=== PATIENT | male | born 1955 | race Caucasian/White ===

== ENCOUNTER 2020-10-16 09:08 | Outpatient (CLI) | payer MEDICARE, SELFPAY ==
--- NOTE | 2020-10-16 09:15 | EST_ITS ---
Patient Info Name: Morteza Galeas Age: 65 years : 1955 Gender: Male Ht: 72 in Wt: 237 lbs BSA: 2.37 m2 Heart Rhythm: Sinus Rhythm Technical Quality: Good Exam Date: 10/16/2020 9:49 AM Exam Location: [facility] Patient Status: Outpatient Admit Date: 10/16/2020 Staff Ordering Physician: Sunny Leahy DO Health Records Technology Teacher: Srini Kimble RDCS, RT Attending Provider: Sunny Leahy DO Exercise Technologist: Laura Araujo CT Exercise Physician: Terrell Allred DO Exam Type: CA stress echo Study Info Indications R07.89 - Other chest pain Treadmill exercise stress echocardiogram is performed. Summary 1. 1. Negative Stefano exercise stress test for ischemic ST changes by ECG criteria. 2. 2. Good functional capacity, achieving 10 METs of workload. 3. 3. Appropriate HR response to exercise. 4. 4. Appropriate HR recovery at 1 minute post exercise. 5. 5. Negative stress echocardiogram for ischemia by wall motion analysis. 6. 6. Patient informed of the above results. Stress Echo Findings Left Ventricle Appropriate increase in LV endocardial thickening with systole. Appropriate augmentation of contractility with systole. No wall motion abnormality. Left Ventricle Normal LV systolic function, no wall motion abnormality. Protocol: Stefano Stress ECG Details Stage: REST Duration (min): 0 min : 27 sec Speed (mph): 0.0 Grade (%): 0 HR (bpm): 71 SBP (mmHg): --- DBP (mmHg): --- METS: --- Stage: REST Duration (min): 16 min : 49 sec Speed (mph): 0.0 Grade (%): 0 HR (bpm): 77 SBP (mmHg): 121 DBP (mmHg): 80 METS: --- Stage: STAGE 1 Duration (min): 1 min : 0 sec Speed (mph): 1.7 Grade (%): 10 HR (bpm): 95 SBP (mmHg): 121 DBP (mmHg): 80 METS: --- Stage: STAGE 1 Duration (min): 2 min : 0 sec Speed (mph): 1.7 Grade (%): 10 HR (bpm): 104 SBP (mmHg): 121 DBP (mmHg): 80 METS: --- Stage: STAGE 1 Duration (min): 3 min : 0 sec Speed (mph): 1.7 Grade (%): 10 HR (bpm): 108 SBP (mmHg): 149 DBP (mmHg): 85 METS: --- Stage: STAGE 2 Duration (min): 1 min : 0 sec Speed (mph): 2.5 Grade (%): 12 HR (bpm): 113 SBP (mmHg): 149 DBP (mmHg): 85 METS: --- Stage: STAGE 2 Duration (min): 2 min : 0 sec Speed (mph): 2.5 Grade (%): 12 HR (bpm): 123 SBP (mmHg): 157 DBP (mmHg): 84 METS: --- Stage: STAGE 2 Duration (min): 3 min : 0 sec Speed (mph): 2.5 Grade (%): 12 HR (bpm): 125 SBP (mmHg): 157 DBP (mmHg): 84 METS: --- Stage: STAGE 3 Duration (min): 1 min : 0 sec Speed (mph): 3.4 Grade (%): 14 HR (bpm): 133 SBP (mmHg): 196 DBP (mmHg): 84 METS: --- Stage: STAGE 3 Duration (min): 2 min : 0 sec Speed (mph): 0.0 Grade (%): 0 HR (bpm): 139 SBP (mmHg): 196 DBP (mmHg): 84 METS: --- Stage: STAGE 3 Duration (min): 2 min : 1 sec Speed (mph): 0.0
== END 2020-10-16 09:09 | disposition home or self-care (01) ==
PROVIDERS: PCP Internal Medicine; Visit Provider Internal Medicine
DX: R07.89 Other chest pain (principal); Z82.3 Family history of stroke
CPT/HCPCS: 93351

== ENCOUNTER 2020-10-28 08:44 | Emergency (ER) | payer MEDICARE, SELFPAY ==
[2020-10-28 09:07] VITALS: BP 145/87; PULSE 72; RESP 18; TEMP 36.2; O2SAT 97
--- NOTE | 2020-10-28 09:14 | ED.BACK ---
HPI - Back Pain/Injury General Chief Complaint: Back Pain/Injury Stated Complaint: back pain Time Seen by Provider: 10/28/20 09:10 Source: patient and RN notes reviewed Mode of arrival: ambulatory Limitations: no limitations History of Present Illness HPI Narrative: 65-year-old male with a history of hypertension presents to the [facility] with complaints of lumbar pain, worse on the left than the right. Patient states that on Monday, 3 days ago, he bent over to pick something up and twisted causing a pain in the left lower lumbar area. Denies any trauma. No loss or retention of bowel or bladder. No new numbness or tingling in extremities. Walks with a normal gait. Has tried topicals and a heating pad with no relief. Denies any abdominal pain or chest pain. Able to do straight leg raises with minimal discomfort on left side. No midline tenderness. Related Data Home Medications Medication Instructions Recorded Confirmed gabapentin [Neurontin] 800 mg PO DAILY 10/28/20 10/28/20 losartan 50 mg PO DAILY 10/28/20 10/28/20 Allergies Allergy/AdvReac Type Severity Reaction Status Date / Time No Known Allergies Allergy Unknown Verified 10/28/20 09:05 Review of Systems Review of Systems: Narrative: CONSTITUTIONAL: Denies fever, chills, or sweats. CARDIOVASCULAR: Denies chest pain, palpitations, or edema. RESPIRATORY: Denies cough or dyspnea. GASTROINTESTINAL: Denies abdominal pain, nausea, vomiting, or diarrhea. GENITOURINARY: Denies dysuria or hematuria. SKIN: Denies rash or itching. MUSCULOSKELETAL: Reports lumbar pain back pain. Denies joint pain. No spinal tenderness. No trauma. NEUROLOGIC: Denies headache, numbness, or weakness. PSYCHIATRIC: Denies anxiety or depression. All other systems reviewed are negative, except as documented in HPI. [facility] Past Medical History Medical History Elevated LDL cholesterol level Essential (primary) hypertension Family History Family History Mother Patient's mother is Father Hypertension Social History Social History Smoking status: Never smoker Second hand tobacco smoke exposure: No Alcohol intake: current Gender identity (if verbalized by the patient): Male Comments At the time of my signature, I reviewed and agree with the nursing past medical, surgical, social, and family history. There is no relevant family history pertinent to the patient complaint. Exam Narrative: Exam Narrative: GENERAL: This is a well-nourished, well-developed patient, in no apparent distress. HEAD: normocephalic, atraumatic. EYES: PERRL. EARS: External ears normal. NECK: Neck supple, non-tender. CARDIOVASCULAR: Regular rate and rhythm without murmurs, gallops, or rubs. RESPIRATORY: Clear to auscultation. Breath sounds equal bilaterally. No wheezes, rales, or rhonchi. GASTROINTESTINAL: Abdomen soft, non-tender, nondistended. No hepato-splenomegaly, or palpable masses. No guarding. SKIN: warm, intact with no suspicious lesions or rash, good texture and turgor. NEURO: awake, alert, and oriented to person, place and time. There were no obvious focal neurologic abnormalities. EXTREMITIES: No joint tenderness, effusion, or edema noted. BACK: Lumbar tenderness noted without deformity. Worse on the left than the right. No vertebral tenderness. No spasm noted. No CVA tenderness. Able to do straight leg raises against resistance with minimal pain on the left, none on the right. Pelvis is stable. Course Vital Signs Vital signs: Vital Signs Temperature 97.2 F L 10/28/20 09:07 Pulse Rate 72 10/28/20 09:07 Respiratory Rate 18 10/28/20 09:07 Blood Pressure 145/87 H 10/28/20 09:07 Pulse Oximetry 97 10/28/20 09:07 Temperature 97.2 F L 10/28/20 09:07 Pulse Rate 72 10/28/20 09:07 Respiratory
== END 2020-10-28 09:25 | disposition home or self-care (01) ==
PROVIDERS: Emergency Provider Nurse Practitioner; PCP Internal Medicine
DX: S39.012A Strain of muscle, fascia and tendon of lower back, initial encounter (principal); X50.9XXA Other and unspecified overexertion or strenuous movements or postures, initial encounter; E78.00 Pure hypercholesterolemia, unspecified; I10 Essential (primary) hypertension
CPT/HCPCS: 99213; G0463

== ENCOUNTER 2022-04-07 13:41 | Outpatient (CLI) | payer MEDICARE, SELFPAY ==
--- NOTE | ~2022-04-07 | CT_ITS ---
EXAMINATION: CT diagnostic chest wo con DATE: 04/07/2022 14:03 INDICATION: Pulmonary nodule TECHNIQUE: Computed tomography (CT) of the chest was performed without intravenous contrast. The dose -length product (DLP) was 256.50 mGy-cm. 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 COMPARISON: 11/24/2014 FINDINGS: There are multiple stable pulmonary nodules, consistent with old granulomatous disease. No new pulmonary nodules are identified. There is mild chronic mediastinal lymphadenopathy, likely react idris. The lungs are free of focal airspace opacities. There is moderate atelectasis. No pleural effusi on or pneumothorax. The heart size is normal. There is elevation of the right hemidiaphragm. Calcifi ed coronary artery atherosclerosis is noted. IMPRESSION: 1. Multiple stable pulmonary nodules, consistent with old granulomatous disease. Reviewed, dictated and finalized at location B. IMPRESSION: 1. Multiple stable pulmonary nodules, consistent with old granulomatous disease .
--- NOTE | 2022-04-07 16:37 | WPDPFTINT ---
PFT Procedure Performed PFT Procedure Performed Spirometry with Pre/Post Bronchodilator Plethysmography (Lung Vol) Diffusing Cap (DLCO) Flow Vol Loop PFT Interpretation This is a pulmonary function test with pre and post-bronchodilator spirometry, plethysmography and diffusing capacity. The test was performed and results interpreted in accordance with the 2019 and 2005 ATS/ERS Task Force guidelines respectively using the Global Lung Function Initiative-2012 reference equations. Patient demonstrated good effort and cooperation. Reproducibility criteria were met. The quality of the pre bronchodilator spirometry maneuver was Grade B and post bronchodilator spirometry maneuver was Grade B. Findings: Spirometry: The contour the inspiratory and expiratory flow tracing are normal. The pre bronchodilator FVC is 4.16 L, 90% predicted. The pre bronchodilator FEV1 is 3.26 L, 93% predicted. The pre bronchodilator FEV1: FVC ratio 78%. The post bronchodilator FVC is 4.16 L, representing no change. The post bronchodilator FEV1 is 3.43 L, representing a 5% increase. The post bronchodilator FEV1: FVC ratio was 82%. Plethysmography: The total lung capacity is 8.77 L, 1 on 118% predicted. The functional residual capacity is 4.75 L, 120% predicted. The residual volume is 4.36 L, 173% predicted. Diffusion capacity: The diffusing capacity unadjusted for hemoglobin and carboxyhemoglobin is 28.0, 102% predicted. The diffusing capacity adjusted for alveolar volume is 4.65, 120% predicted. Impression: The spirometry is normal without evidence of an obstructive abnormality. There is no significant improvement after inhaling a single dose of albuterol. The total lung capacity is normal with an increased residual volume. This is an abnormal but nonspecific lung volume pattern. The diffusing capacity is normal. There are no prior studies for comparison
== END 2022-04-07 13:42 | disposition home or self-care (01) ==
PROVIDERS: PCP Internal Medicine; Visit Provider Internal Medicine
DX: R91.1 Solitary pulmonary nodule (principal); R06.09 Other forms of dyspnea; R91.8 Other nonspecific abnormal finding of lung field
CPT/HCPCS: 71250; 94060; 94726; 94729

== ENCOUNTER 2022-05-10 12:24 | Outpatient (CLI) | payer MEDICARE, SELFPAY ==
--- NOTE | 2022-05-10 12:33 | ECHO_ITS ---
Patient Info Name: Morteza Galeas Age: 66 years : 1955 Gender: Male Ht: 72 in Wt: 243 lbs BSA: 2.40 m2 HR: 71 bpm BP: 127 / 79 mmHg Technical Quality: Fair Exam Date: 05/10/2022 1:21 PM Exam Location: [facility] Patient Status: Outpatient Admit Date: 05/10/2022 Staff Ordering Physician: Terrell Allred DO Rn Assessment: Neena Ramos RDCS Attending Provider: Terrell Allred DO Referring Physician: Chalino HUGHES; Exam Type: CA echo doppler color flow Study Info Indications - family history of HOCM Complete two-dimensional, color flow and Doppler transthoracic echocardiogram is performed. Summary 1. Complete two-dimensional, color flow and Doppler transthoracic echocardiogram is performed. 2. Left ventricular chamber dimension is normal. 3. Left ventricular systolic function is normal, estimated at 60-65%. 4. The left ventricular diastolic function is grade I diastolic dysfunction. 5. E/e' 6 is not elevated. Left Ventricle E/e' 6 is not elevated. Left ventricular chamber dimension is normal. Left ventricular systolic function is normal, estimated at 60-65%. The left ventricular diastolic function is grade I diastolic dysfunction. Right Ventricle Right ventricular systolic function is normal and with normal TAPSE 1.7 cm. Right ventricular chamber dimension is normal. Left Atria Left atrial chamber dimension is normal. Right Atria Right atrial chamber dimension is normal. Aortic Valve The aortic valve is trileaflet. There is no aortic valve stenosis. There is no aortic valve regurgitation. Pulmonic Valve There is no pulmonic regurgitation. Mitral Valve There is no mitral valve stenosis. There is no mitral valve regurgitation. Tricuspid Valve There is no tricuspid valve regurgitation. Pericardium/Pleural There is no pericardial effusion. Inferior Vena Cava Normal inferior vena cava with >50% collapse upon inspiration consistent with normal right atrial pressure, 5 mmHg. Aorta The aortic root size at the sinus of Valsalva is normal. Left Ventricular Outflow Tract Name Value Normal LVOT 2D LVOT Diameter 2.2 cm LVOT Doppler LVOT Peak Gradient 4 mmHg LVOT Mean Gradient 2 mmHg LVOT VTI 20 cm LVOT VTI/AV VTI Ratio 0.9 LVOT Stroke Volume 73 ml LVOT CO 5.4 l/min LVOT CI 2.3 l/min/m2 Mitral Valve Name Value Normal MV Doppler MV Peak Gradient 4 mmHg MV Mean Gradient 1 mmHg MV Decel Freeborn 365 cm/s2 MV PHT 58 ms MV Area (PHT) 3.8 cm2 4
== END 2022-05-10 12:25 | disposition home or self-care (01) ==
LOC: ANHCARD 12:26
PROVIDERS: PCP Internal Medicine; Visit Provider Internal Medicine Cardiovascular Disease
DX: R06.09 Other forms of dyspnea (principal)
CPT/HCPCS: 93306

== ENCOUNTER 2023-09-03 10:10 | Emergency (ER) | payer MEDICARE, SELFPAY ==
[2023-09-03 10:20] VITALS: BP 137/78; PULSE 88; RESP 20; TEMP 36.6; O2SAT 97
--- NOTE | 2023-09-03 11:08 | ED.GENADULT ---
HPI - General Adult General Chief complaint: Upper Respiratory Infection Stated complaint: Allergies Source: patient Mode of arrival: ambulatory Limitations: no limitations History of Present Illness HPI narrative: Patient presents for evaluation of a cough that he has experience for the last week. Cough is productive of clear sputum. He denies shortness of breath, fever, chills, nausea, vomiting, sore throat, otalgia. No recent sick contacts to his knowledge. He tried NyQuil which helped initially but later lost efficacy. He then tried Mucinex DM without improvement in his symptoms or after. He does not smoke. He took a home COVID test which was negative. Related Data Home Medications Medication Instructions Recorded Confirmed gabapentin 800 mg tablet 800 mg PO DAILY 10/28/20 08/01/23 (Neurontin) magnesium chloride 64 mg 64 mg PO DAILY 02/01/23 08/01/23 (magnesium chloride) tablet,delayed release mecobalamin (vitamin B12) 500 mcg mcg PO 02/01/23 08/01/23 chewable tablet Allergies Allergy/AdvReac Type Severity Reaction Status Date / Time No Known Allergies Allergy Unknown Verified 08/01/23 09:21 Review of Systems Review of Systems: CONSTITUTIONAL: Denies fever, chills, or sweats. EYES: Denies visual changes, redness, or discharge. ENT: Denies rhinorrhea, congestion, sore throat, or otalgia. CARDIOVASCULAR: Denies chest pain, palpitations, or edema. RESPIRATORY: Reports productive cough of clear sputum. Denies shortness of breath. GASTROINTESTINAL: Denies abdominal pain, nausea, vomiting, or diarrhea. GENITOURINARY: Denies dysuria or hematuria. SKIN: Denies rash or itching. MUSCULOSKELETAL: Denies back pain, joint pain, or myalgia. NEUROLOGIC: Denies headache, numbness, dizziness, or weakness. PSYCHIATRIC: Denies anxiety or depression. [facility] Past Medical History Medical History (Updated 09/03/23 @ 11:09 by CADEN Holcomb, JENNIFER) Elevated LDL cholesterol level Essential (primary) hypertension Surgical History Surgical History (Updated 09/03/23 @ 11:09 by CADEN Holcomb, JENNIFER) No pertinent past surgical history Family History Family History Mother Patient's mother is Father Hypertension Social History Social History Smoking status: Never smoker Second hand tobacco smoke exposure: No Alcohol intake: current Substance use: unknown Lack of Transportation: No Lack of Food: Never True Current Housing: I Have Housing Concerned About Future Housing: No Difficulty Paying Gas/Electric Bills: No Difficulty Paying for Meds: No Currently Unemployed: No Education: High School Diploma/GED Difficulty w/ Childcare or Family Care: No Gender identity (if verbalized by the patient): Male Exam Narrative: GENERAL: Well-appearing, well-nourished, and in no acute distress. HEAD: Normocephalic, atraumatic. EYES: PERRLA and EOMI. ENT: Nares clear, no rhinorrhea or epistaxis. Mucous membranes moist. Oropharynx without tonsillar hypertrophy exudate or other lesions. Bilateral TMs pearly kent nonbulging NECK: Supple. No adenopathy or masses. No carotid bruits or JVD CHEST: Cough present on exam. Rales noted in left lung base posteriorly. No respiratory distress. HEART: Regular rate and rhythm. No murmur heard. Normal peripheral pulses. ABDOMEN: Soft, nontender, nondistended, normal active bowel sounds. EXTREMITIES: Normal range of motion. No edema. SKIN: Warm, dry, no rash. NEURO: No focal deficits. Alert and oriented x3. PSYCH: Normal mood and affect. Course Course Emergency Course: This is a 68-year-old male who presented for evaluation of a cough for the last week. He took a home COVID test which was negative. I did offer to check him for COVID and flu which he declined. Unfortunately
== END 2023-09-03 11:10 | disposition home or self-care (01) ==
PROVIDERS: Emergency Provider Nurse Practitioner; PCP Physician Assistant
DX: R05.9 Cough, unspecified (principal); E78.00 Pure hypercholesterolemia, unspecified; I10 Essential (primary) hypertension
CPT/HCPCS: 99213; G0463

== ENCOUNTER 2023-09-05 09:50 | Outpatient (CLI) | payer MEDICARE, SELFPAY ==
--- NOTE | ~2023-09-05 | XR_ITS ---
Clinical Indication: Pneumonia PA and lateral views of the chest: Comparison: None Findings: Small right pleural effusion present, probable right basilar atelectasis. Possible 7 mm lef t basilar pulmonary nodule. Cardiomediastinal silhouette is within normal limits. Bones and soft tiss ues are unremarkable. Impression: Small right pleural effusion with probable right basilar atelectasis. Correlate clinically for pneumo lewis. Possible 7 mm left basilar pulmonary nodule. This may correspond with nodule seen on prior CT scan. C onsider follow-up CT scan to confirm no significant interval change. Reviewed, dictated and finalized at location . 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 Correlate clinically for pneumonia. Possible 7 mm left basilar pulmonary nodule. This may correspond with nodule se en on prior CT scan. Consider follow-up CT scan to confirm no significant inter miquel change.
== END 2023-09-05 09:51 | disposition home or self-care (01) ==
PROVIDERS: PCP Physician Assistant; Visit Provider Internal Medicine
DX: J40 Bronchitis, not specified as acute or chronic (principal); J90 Pleural effusion, not elsewhere classified
CPT/HCPCS: 71046

== ENCOUNTER 2023-10-04 21:27 | Emergency (ER) | payer MEDICARE, SELFPAY ==
--- NOTE | ~2023-10-04 | XR_ITS ---
EXAMINATION: XR chest 1V portable DATE: 10/04/2023 22:17 INDICATION: Hypertension. TECHNIQUE: A single frontal view of the chest was obtained. COMPARISON: Chest 2 views 09/05/2023, chest CT 04/07/2022 FINDINGS: There is mild atelectasis at the lung bases. No pleural effusion or pneumothorax. The heart size is normal. IMPRESSION: 1. Mild atelectasis at the lung bases. Reviewed, dictated and finalized at location E. HEAD PUMPER
--- NOTE | 2023-10-04 21:29 | ECG_ITS ---
Measurements Intervals [place] Rate: 100 P: 27 NV: 157 QRS: -37 QRSD: 98 T: 33 QT: 328 QTc: 423 Interpretive Statements SINUS TACHYCARDIA LEFT AXIS DEVIATION [QRS AXIS < -30] PATTERN CONSISTENT WITH PULMONARY DISEASE BORDERLINE ECG NO PREVIOUS ECG AVAILABLE FOR COMPARISON Electronically Signed On 10-05-2023 12:20:58 [employer] WHE[employer] by Lamont Painter M.D.
[2023-10-04 21:36] VITALS: BP 131/85; PULSE 99; RESP 16; TEMP 36.2; O2SAT 93
[2023-10-04 22:10] LABS: Basophils Percent Auto 0.3 % (0.2-1.2); Eosinophils Absolute Auto 0.2 K/mm3 (0-0.3); Eosinophils Percent Auto 2.2 % (0-4.4); Hematocrit 44.5 % (42.0-52.0); Hemoglobin 15.4 g/dL (14.0-18.0); Immature Granulocyte Absolute 0.03 K/mm3 (0.00-0.031); Immature Granulocyte Percent A 0.4 % (0-0.5); Lymphocytes Absolute Auto 1.03 K/mm3 (0.9-3.2); Lymphocytes Percent Auto 13.1 % (18.3-44.2); Mean Corpuscular HGB Conc 34.6 g/dl (32-36); Mean Corpuscular Hemoglobin 30.8 pg (26-34); Mean Platelet Volume 8.9 fl (7.4-10.4); Monocytes Absolute Auto 0.7 K/mm3 (0.1-0.6); Monocytes Percent Auto 8.5 % (2.6-8.5); Neutrophils Absolute Auto 5.9 K/mm3 (1.3-6.7); Neutrophils Percent Auto 75.5 % (45.5-73.1); Platelet Count Result 180 k/mm3 (150-375); Red Cell Distribution Width 13.8 % (11.5-14.5); White Blood Count 7.9 K/mm3 (4.5-10.0)
[2023-10-04 22:15] VITALS: BP 138/82; PULSE 91; RESP 18; O2SAT 97
[2023-10-04 22:20] LABS: INR 0.9; Prothrombin Time 12.9 Seconds (11.1-14.7)
[2023-10-04 22:21] LABS: Alanine Aminotransferase 32 U/L (6-50); Alkaline Phosphatase 78 U/L (38-126); Anion Gap 9 mmol/L (8-16); Aspartate Amino Transferase 37 U/L (17-59); Bilirubin,Total 1.1 mg/dL (0.2-1.3); Blood Urea Nitrogen 33 mg/dL (9-20); Calcium 9.1 mg/dL (8.4-10.2); Carbon Dioxide 24 mmol/L (22-30); Chloride 102 mmol/L (98-107); Estimated CRCL calculation 85 ml/min; Estimated Glomerular Filt Rate > 60; Glucose 152 mg/dL (65-110); Lipase 84 U/L (23-300); Partial Thromboplastin Time 25.3 SECONDS (22.3-36.8); Potassium 3.5 mmol/L (3.4-5.0); Sodium 135 mmol/L (137-145)
[2023-10-04] MEDS: ASPIRIN 81 MG CHEWABLE TABLET 324 MG PO (22:22)
[2023-10-04 22:30] VITALS: BP 125/76; PULSE 87; RESP 17; O2SAT 95
[2023-10-04 22:32] LABS: Troponin I < 0.012 ng/mL (0.000-0.034)
--- NOTE | 2023-10-04 22:40 | ED.ARRPALP ---
HPI - Arrhythmia/Palpitations General Chief Complaint: Arrhythmia/Palpitations Stated Complaint: elevated HR Time Seen by Provider: 10/04/23 22:37 Source: patient and family Limitations: no limitations History of Present Illness HPI narrative: 68 yo male presents with elevated heart rate. He became lightheaded and weak while at [employer] and saw that his heart rate was 115 on his wristwatch monitor. No fever. He states he has had a lingering occasional cough ever since a diagnosis of pneumonia approximately 1 month ago for which he received antibiotics and steroids. Non smoker. He felt like he might faint and he was sweaty. No chest pain or SOB at the time or now. The episode lasted 5-10 minutes. No symptoms now other than feeling tired. He did not lose consciousness during episode. He had been standing for awhile at the time, no recent position changes but not particularly standing still with legs locked. This has never happened before. No history of liver disease, CHF, diabetes. Takes Lasix for chronic lower extremity edema. No underlying cardiac or respiratory conditions; previously had nodules noted on CXR that are being followed up with. 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 Related Data Home Medications Medication Instructions Recorded Confirmed gabapentin 800 mg tablet 800 mg PO DAILY 10/28/20 09/11/23 (Neurontin) magnesium chloride 64 mg 64 mg PO DAILY 02/01/23 09/11/23 (magnesium chloride) tablet,delayed release mecobalamin (vitamin B12) 500 mcg mcg PO 02/01/23 09/11/23 chewable tablet Allergies Allergy/AdvReac Type Severity Reaction Status Date / Time No Known Allergies Allergy Unknown Verified 10/04/23 22:20 [facility] Past Medical History Medical History Elevated LDL cholesterol level Essential (primary) hypertension Surgical History Surgical History No pertinent past surgical history Family History Family History (Updated 10/07/23 @ 22:10 by Tiffanie Sandoval MD) Mother Patient's mother is Father Hypertension Other HOCM (hypertrophic obstructive cardiomyopathy) Social History Social History Smoking status: Never smoker Second hand tobacco smoke exposure: No Alcohol intake: current Substance use: unknown Lack of Transportation: No Lack of Food: Never True Current Housing: I Have Housing Concerned About Future Housing: No Difficulty Paying Gas/Electric Bills: No Difficulty Paying for Meds: No Currently Unemployed: No Education: High School Diploma/GED Difficulty w/ Childcare or Family Care: No Gender identity (if verbalized by the patient): Male Exam Narrative: GENERAL: Well-appearing, well-nourished, and in no acute distress. HEAD: Normocephalic, atraumatic. EYES: Non injected, non icteric ENT: Nares clear, no rhinorrhea or epistaxis. NECK: Supple. CHEST: Clear to auscultation. No respiratory distress. No wheezes, crackles. HEART: Regular rate and rhythm. No murmurs appreciated . ABDOMEN: Soft, nondistended. EXTREMITIES: Normal range of motion. Trace b/l lower extremity edema. SKIN: Warm, dry, no rash. NEURO: No focal deficits. Alert and oriented x3. Speaks clearly without aphasia or dysphasia. PSYCH: Normal mood and affect. Course Vital Signs Vital signs: Vital Signs Temperature 97.2 F L 10/04/23 21:36 Pulse Rate 99 10/04/23 21:36 Respiratory Rate 16 10/04/23 21:36 Blood Pressure 131/85 10/04/23 21:36 Pulse Oximetry 93 10/04/23 21:36 Oxygen Delivery Room Air 10/04/23 21:36 Temperature 97.2 F L 10/04/23 21:36 Pulse Rate 86 10/04/23 23:15 Respiratory Rate 17 10/04/23 23:15 Blood Pressure 125/76
[2023-10-04] MEDS: SODIUM CHLORIDE 0.9% IV 1,000 ML 999 ML IV CONT (22:46)
[2023-10-04 23:15] VITALS: PULSE 86; RESP 17; O2SAT 96
[2023-10-04 23:24] LABS: D Dimer 0.41 ug/mL (<0.48)
[2023-10-05 00:01] LABS: Influenza A QL RT-PCR Negative (Negative); Influenza B QL RT-PCR Negative (Negative); RSV RNA, RT-PCR Negative (Negative); SARS-CoV-2 RNA PCR Positive (Negative)
== END 2023-10-05 01:00 | disposition home or self-care (01) ==
PROVIDERS: Emergency Provider Student in an Organized Health Care Education/Training Program; PCP Physician Assistant
DX: U07.1 COVID-19 (principal); R55 Syncope and collapse; R00.0 Tachycardia, unspecified; I10 Essential (primary) hypertension
CPT/HCPCS: 36415; 71045; 80053; 83690; 84443; 84484; 85025; 85380; 85610; 85730; 87637; 93005; 96360; 99284; A9270; J7030

== ENCOUNTER 2024-04-10 07:23 | Emergency (ER) | payer MEDICARE, SELFPAY ==
[2024-04-10 07:30] VITALS: BP 131/81; PULSE 72; RESP 18; TEMP 36.4; O2SAT 97
--- NOTE | 2024-04-10 07:53 | ED.EXTPRO ---
HPI - Extremity Problem General Chief complaint: Extremity Problem,Nontraumatic Stated complaint: L arm pain, known tendonitis Time Seen by Provider: 04/10/24 07:34 History of Present Illness HPI Narrative: 68-year-old male presenting to the emergency department for evaluation for persistent left shoulder pain. Patient has been following up with Dr. Hernandez for left shoulder pain and was diagnosed with tendinitis. Patient is on steroids but states this is not helping. Patient did give Dr. Hernandez a call yesterday and does have follow-up scheduled. Patient presented to the emergency department today stating that the pain is uncontrolled. Patient has been taking ibuprofen for pain control with no significant improvement. Patient states pain is worsened with movement. Related Data Home Medications Medication Instructions Recorded Confirmed gabapentin 800 mg tablet 800 mg PO DAILY 10/28/20 10/11/23 (Neurontin) magnesium chloride 64 mg 64 mg PO DAILY 02/01/23 10/11/23 (magnesium chloride) tablet,delayed release Allergies Allergy/AdvReac Type Severity Reaction Status Date / Time No Known Allergies Allergy Unknown Verified 04/10/24 07:24 Review of Systems Review of Systems: All systems reviewed & are unremarkable except as noted in HPI and below PMFSH Past Medical History Medical History Elevated LDL cholesterol level Essential (primary) hypertension Surgical History Surgical History No pertinent past surgical history Family History Family History Mother Patient's mother is Father Hypertension Other HOCM (hypertrophic obstructive cardiomyopathy) Social History Social History (Updated 04/02/24 @ 13:38 by CLARE Blunt) Smoking status: Never smoker Second hand tobacco smoke exposure: No Alcohol intake: current Substance use: never Substance use type: does not use Do You Feel Safe in your Home?: Yes Lack of Transportation: No Lack of Food: Never True Current Housing: I Have Housing Concerned About Future Housing: No Difficulty Paying Gas/Electric Bills: No Difficulty Paying for Meds: No Currently Unemployed: No Education: High School Diploma/GED Difficulty w/ Childcare or Family Care: No Living arrangements: with family Occupation/Education: retired 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 HEAD: normocephalic, atraumatic. EYES: PERRLA/EOMI, conjunctivae clear. NOSE: Normal no drainage EARS:TMS clear with good light reflex. THROAT: Pharynx clear, no exudate. NECK: Supple. No adenopathy, no masses. RESPIRATORY: Airway patent, respirations nonlabored. Clear to auscultation bilaterally, no rales, rhonchi, wheezing. CARDIOVASCULAR: Regular rate and rhythm without murmurs rubs or gallops. ABDOMINAL: Soft, nontender, nondistended, normal bowel sounds MUSCULOSKELETAL: Left shoulder pain, anterior shoulder tenderness to palpation NEURO: Alert. Cranial nerves II through XII intact. Good gait. Good coordination SKIN: Warm, dry. Normal Color Course Course Emergency Course: Patient was provided additional medication for pain control. Vital Signs Vital signs: Vital Signs Temperature 97.6 F 04/10/24 07:30 Pulse Rate 72 04/10/24 07:30 Respiratory Rate 18 04/10/24 07:30 Blood Pressure 131/81 04/10/24 07:30 Pulse Oximetry 97 04/10/24 07:30 Temperature 97.6 F 04/10/24 07:30 Pulse Rate 67 04/10/24 08:36 Respiratory Rate 16 04/10/24 08:36 Blood Pressure 131/83 04/10/24 08:36 Pulse Oximetry 96 04/10/24 08:36 MDM - Extremity (Nontraumatic) MDM Narrative M
[2024-04-10] MEDS: HYDROcodone/acetaminophen (*CRX) 5-325 MG TABLET 1 TAB PO (08:06)
[2024-04-10] MEDS: CYCLOBENZAPRINE HCL 10 MG TABLET PO (08:13)
[2024-04-10] MEDS: KETOROLAC 30 MG/ML VIAL (*BKC) IM (08:33)
[2024-04-10 08:36] VITALS: BP 131/83; PULSE 67; RESP 16; O2SAT 96
== END 2024-04-10 08:53 | disposition home or self-care (01) ==
PROVIDERS: Emergency Provider Emergency Medicine; PCP Physician Assistant
DX: M77.8 Other enthesopathies, not elsewhere classified (principal); I10 Essential (primary) hypertension
CPT/HCPCS: 96372; 99283; A4565; A9270; J1885

== ENCOUNTER 2024-12-10 10:17 | Outpatient (CLI) | payer MEDICARE, SELFPAY ==
--- NOTE | ~2024-12-10 | XR_ITS ---
XR shoulder LT min 2V Ordering provider: Ole Jacobsen MD History: . M25.512 - Pain in left shoulder HX SURGERY LT SHOULDER . Comparison: April 02, 2024 FINDINGS: BONES: No acute fracture or dislocation. Minimally sclerotic area in the greater tuberosity probably degenerative. JOINT SPACES: The acromioclavicular joint is normal. The glenohumeral joint is normal. SOFT TISSUES: Normal. IMPRESSION: No acute osseous abnormality left shoulder. Reviewed, dictated and finalized at location A.
--- OUTSIDE RECORDS SUMMARY | 2024-12-10 11:29 | XMS_ITS | Clinical Summary ---
Author Organization [email or web address] Address [address] [place] [address] Care Team Providers Care Elevator Repairer Name Role Phone Sunny Leahy Primary Care Provider [phone] Source Comments [email or web address],non-owned Affiliates and Associated Physician Practices is amultiple site organization consisting of ambulatory clinics and hospital sitesin [place], [place], [place] and [place]. This disclosure is being madepursuant to the Care Everywhere program and may not contain all information available regarding this patient. Last updated 18.[email or web address] Allergies No known active allergies Medications * Be aware that medications may not be up to date on this document. Alwaysverify current medications with the patient. losartan (COZAAR) 50 MG tablet Take 50 mg by mouth once daily Active Social History Tobacco Use Types Packs/Day Years Used Date Smoking Tobacco: Never Sex and Gender Information Value Date Recorded Sex Assigned at Not on file Legal Sex Male 1:22 PM CDT Gender Identity Not on file Sexual Orientation Not on file Last Filed Vital Signs Vital Sign Reading Time Taken Comments Blood Pressure 120/76 06/19/2016 10:11 AM [employer] Pulse 101 06/19/2016 10:11 AM [employer] Temperature 36.8 C (98.2 F) 06/19/2016 10:11 AM [employer] Respiratory Rate 18 06/19/2016 10:11 AM [employer] Oxygen Saturation - - Inhaled Oxygen Concentration - - Weight 99.8 kg (220 lb) 03/31/2018 10:43 AM CDT Height 180.3 cm (5' 11 ) 03/31/2018 10:43 AM CDT Body Mass Index 30.68 03/31/2018 10:43 AM CDT Plan of Treatment Health Maintenance Due Date Last Done Comments COLOGUARD (AGES 45-75) - COL ON CA SCREENING 1953 COLON MONITORING 1953 COLONOSCOPY - COLON CA SCREENING 1953 CT COLONOGRAPHY - COLON CA SCREENING 1953 Colorectal Cancer Screening 1953 FIT - COLON CA SCREENING 1953 FLEX SIG - COLON CA SCREENING 1953 LIPID TESTING 1953 HEPATITIS C SCREENING 08/16/1971 DTAP/TDAP/TD VACCINES (1 - Tdap) 1972 PNEUMOCOCCAL VACCINE 50+ (1 of 1 - PCV) 2003 ZOSTER VACCINE (1 of 2) 2003 COVID-19 VACCINE ( - 2023-2 5 season) 2024 DEPRESSION SCREENING 08/14/2024 INFLUENZA VACCINE (Season Ended) 2025 Respiratory Syncytial Virus (RSV) Vaccine Pt: or over 60 yrs (1 - 1-dose 75+ series) 2028 HEPATITIS B VACCINE Aged Out No longe r eligible based on patient's age to complete this topic HIB VACCINE Aged Out No longer eligi ble based on patient's age to complete this topic HPV VACCINE Aged Out No longer eligi ble based on patient's age to complete this topic MENINGOCOCCAL (Group B) VACC INE SHARED DECISION-MAKING Aged Out No longer eligibl e based on patient's age to complete this topic MENINGOCOCCAL GROUPS A/C/Y/W VACCINE Aged Out No longer eligible b ased on patient's age to complete this topic Insurance [facility] [place] [address] Care Teams Elevator Repairer Relationship Specialty Start Date End Date Sunny Leahy DO [address] [place] [address] PCP - General Internal Medicine 06/19/16
== END 2024-12-10 10:18 | disposition home or self-care (01) ==
LOC: ANHIMG 10:18
PROVIDERS: PCP Internal Medicine; Visit Provider Orthopaedic Surgery
DX: M25.512 Pain in left shoulder (principal)
CPT/HCPCS: 73030

== ENCOUNTER 2025-03-27 08:09 | Outpatient (CLI) | payer MEDICARE, SELFPAY ==
--- NOTE | ~2025-03-27 | XR_ITS ---
XR chest 2V 03/27/2025 08:25 Indication: Cough Procedure: PA and lateral views of the chest Comparison: 10/04/2023 Findings: There is right basilar airspace disease which appears chronic, most likely atelectasis/scar ring. Elevated right diaphragm. No acute focal pneumonia, edema or effusion. No pneumothorax. Impression: 1: Chronic right basilar atelectasis/scarring. No acute cardiopulmonary disease. Reviewed, dictated and finalized at location A. Impression: 1: Chronic right basilar atelectasis/scarring. No acute cardiopulmonary disease .
--- OUTSIDE RECORDS SUMMARY | 2025-03-27 08:13 | XMS_ITS | Clinical Summary ---
Author Organization [facility] Address [address] [place] [address] Care Team Providers Care Foster Care Social Worker Name Role Phone Sunny Leahy Primary Care Provider Source Comments [facility],non-owned Affiliates and Associated Physician Practices is amultiple site organization consisting of ambulatory clinics and hospital sitesin [place], [place], [place] and [place]. This disclosure is being madepursuant to the Care Everywhere program and may not contain all information available regarding this patient. Last updated 18.[facility] Allergies No known active allergies Medications * [...] Comments Blood Pressure 120/76 06/19/2016 10:11 AM LOG ROPER Pulse 101 06/19/2016 10:11 AM LOG ROPER Temperature 36.8 C (98.2 F) 06/19/2016 10:11 AM LOG ROPER Respiratory Rate 18 06/19/2016 10:11 AM LOG [facility]OPER Oxygen Saturation - - Inhaled Oxygen Concentration - - Weight 99.8 kg (220 lb) 03/31/2018 10:43 AM CDT Height 180.3 cm (5' 11) 03/31/2018 10:43 AM CDT Body Mass Index [...] VACCINE (1 of 2) 2003 COVID-19 VACCINE (1 - 2023-2 5 season) 2024 DEPRESSION SCREENING 08/14/2024 INFLUENZA VACCINE (#1) 2025 Respiratory Syncytial Virus (RSV) Vaccine Pt: [...] patient's age to complete this topic Insurance [facility] MANAGED MEDICARE ADV Care Teams Foster Care Social Worker Relationship Specialty Start Date End Date Sunny Leahy DO [address] [place] [address] PCP - General Internal Medicine 06/19/16
== END 2025-03-27 08:10 | disposition home or self-care (01) ==
PROVIDERS: PCP Internal Medicine; Visit Provider Internal Medicine
DX: R05.9 Cough, unspecified (principal); R91.8 Other nonspecific abnormal finding of lung field
CPT/HCPCS: 71046